=== PATIENT | male | born 1960 | race Hispanic/Latino ===

== ENCOUNTER 2018-10-30 04:54 | Emergency (ER) | payer BC ==
[2018-10-30 05:54] LABS: Basophils # (Auto) 0.1 K/mm3 (0.0-0.1); Basophils % (Auto) 0.6 % (0.0-1.8); Eosinophils # (Auto) 0.2 K/mm3 (0.0-0.4); Eosinophils % (Auto) 2.3 % (0.0-4.3); Hematocrit 44.6 % (35.5-45.6); Hemoglobin 15.1 gm/dl (11.8-15.2); Lymphocytes # (Auto) 1.7 K/mm3 (1.2-5.4); Lymphocytes % (Auto) 21.8 % (13.4-35.0); Mean Corpuscular HGB Conc 34 % (32-34); Mean Corpuscular Volume 98 fl (84-94); Monocytes # (Auto) 0.7 K/mm3 (0.0-0.8); Monocytes % (Auto) 8.5 % (0.0-7.3); Platelet Count 223 K/mm3 (140-440); Red Blood Count 4.53 M/mm3 (3.65-5.03); Red Cell Distribution Width 14.5 % (13.2-15.2)
[2018-10-30 06:12] LABS: BUN/Creatinine Ratio 9; Blood Urea Nitrogen 11 mg/dL (9-20); Calcium 9.7 mg/dL (8.4-10.2); Hemolysis Index 7
[2018-10-30] MEDS ORDERED: TYLENOL PO STA (06:56)
--- NOTE | 2018-10-30 06:57 | Emergency Department Report ---
ED Chest Pain HPI - General Chief Complaint: Chest Pain Stated Complaint: CHEST PAIN Time Seen by Provider: 10/30/18 06:45 Source: patient, RN notes reviewed Mode of arrival: Ambulatory Limitations: No Limitations - History of Present Illness Initial Comments: This is a 58-year-old gentleman who is not known to this provider previously, with a reported history of diabetes and hypertension. Patient works as a post hospital admissions officer, and is right-hand dominant. The patient presents to the emergency room with 2 complaints. His first complaint is nontraumatic left medial hypo-thenar numbness and pinky numbness, constant, painless, does not radiate anywhere for 2 days. The symptoms do not have exacerbating or relieving factors. There is no blurry vi elida, there is no extremity weakness, there is no proximal numbness, there is no loss of visual acuity, and there is no pain with chewing or swallowing food. At one point in time, he had a headache, which was not sudden or thunderclap in nature, not maximal in intensity, temporal, left-sided, now resolved. He has no midline neck pain. He has no bladder or bowel retention or incontinence. He has a secondary complaint of left-sided chest wall pain. This pain is present for 2 days. It is constant. It does not radiate to the back, arms or neck. There is no vomiting, diaphoresis or shortness of breath. There is no family history of cardiac disease. There is no posterior leg pain, there is no leg swelling, the patient reports no DVT or pulmonary embolus risk factors. He reports no cocaine use, and no tobacco consumption. MD Complaint: chest pain, other -: Gradual Onset: other Pain Location: other Pain Radiation: none Severity scale (0 -10): 1 Quality: aching Consistency: constant Improves With: rest Worsens With: palpation Aspirin use within the Past 7 Days: (1) Yes (for headache) - Related Data On Oral Contraceptives: No Previous Rx's Medication Instructions Recorded Last Taken Type Acetaminophen [Tylenol Arthritis] 650 mg PO Q6HR PRN #30 tablet.er 10/30/18 Unknown Rx Aspirin [Aspirin BABY CHEW TAB] 81 mg PO QDAY #30 tab.chew 10/30/18 Unknown Rx Allergies Allergy/AdvReac Type Severity Reaction Status Date / Time No Known Allergies Allergy Unverified 10/30/18 05:07 Heart Score - HEART Score History: Slightly suspicious EKG: Non-specific Age: 45-65 Risk factors: 1-2 risk factors Troponin: < normal limit HEART Score: 3 - Critical Actions Critical Actions: 0-3 pts:0.9-1.7%risk of adverse cardiac event.Candidate for discharge ED Review of Systems ROS: Stated complaint: CHEST PAIN Other details as noted in HPI Constitutional: denies: fever Eyes: denies: eye discharge, vision change ENT: denies: epistaxis Respiratory: denies: cough Cardiovascular: chest pain Gastrointestinal: denies: abdominal pain, nausea, vomiting Genitourinary: denies: dysuria Musculoskeletal: denies: back pain, arthralgia, myalgia Skin: denies: lesions Neurological: headache, numbness Psychiatric: denies: anxiety ED Past Medical Hx - Past Medical History Previous Medical History?: Yes Hx Hypertension: Yes Hx Diabetes: Yes - Surgical History Past Surgical History?: No - Social History Smoking Status: Never Smoker Substance Use Type: None - Medications Home Medications: Home Medications Medication Instructions Recorded Confirmed Last Taken Type Acetaminophen [Tylenol Arthritis] 650 mg PO Q6HR PRN #30 tablet.er 10/30/18 Unknown Rx Aspirin [Aspirin BABY CHEW TAB] 81 mg PO QDAY #30 tab.chew 10/30/18 Unknown Rx ED Physical Exam - General Limitations: No Limitations General appearance: alert, in no apparent distress - Head Head exam: Present: atraumatic, normocephalic - Eye Eye exam: Present: normal appearance, PERRL, EOMI, other (visual acuity intact to finger counting, color perception, reading at a close distance). Absent: nystagmus - ENT ENT exam: Present: normal exam, normal orophraynx, mucous membranes moist, normal external ear exam - Neck Neck exam: Present: normal inspection, full ROM. Absent: tenderness, m eningismus - Respiratory Respiratory exam: Present: normal lung sounds bilaterally, chest wall tenderness. Absent: respiratory distress, wheezes, rales, rhonchi, stridor - Cardiovascular Cardiovascular Exam: Present: regular rate, normal rhythm, normal heart sounds. Absent: bradycardia, tachycardia, irregular rhythm, systolic murmur, diastolic murmur, rubs, gallop - GI/Abdominal GI/Abdominal exam: Present: soft. Absent: distended, tenderness, guarding, rebound, pulsatile mass - Rectal Rectal exam: Present: deferred - Extremities Exam Extremities exam: Present: normal inspection, full ROM, other (2+ pulses noted in the bilateral upper, lower extremities. Compartments soft. No long bony tenderness. The pelvis is stable.). Absent: pedal edema, joint swelling, calf tenderness - Back Exam Back exam: Present: normal inspection, full ROM. Absent: tenderness, CVA tenderness (R), paraspinal tenderness, vertebral tenderness - Neurological Exam Neurological exam: Present: alert, oriented X3, CN II-XII intact, normal gait, other (Extraocular movements intact. Tongue midline. No facial droop. Facial sensation intact to light touch in the V1, V2, V3 distribution bilaterally. 5 and 5 strength in 4 extremities.. Sensation is intact to light touch in 4 extremities. Sensation intact to light touch, pinprick, proprioception in the bilateral upper, lower extremities). Absent: motor sensory deficit - Psychiatric Psychiatric exam: Present: normal affect, normal mood - Skin Skin exam: Present: warm, dry, intact, normal color. Absent: rash ED Course Vital Signs 10/30/18 05:06 Temperature 97.4 F L Pulse Rate 70 Respiratory 20 Rate Blood Pressure 150/94 O2 Sat by Pulse 93 Oximetry - Reevaluation(s) Reevaluation #1: 10/30/18 07:23 Differential diagnosis, including but not limited to: Peripheral neuropathy, diabetic neuropathy, costochondritis, intracranial lesion, pneumonia 10/30/18 07:23 Assessment and plan: 58-year-old gentleman with reproducible chest wall pain, present constantly for 48 hours, no pulmonary embolus or DVT risk factors, low risk by well's criteria, low risk by SAUL score, low risk by heart score, troponin negative 2, unlikely to be atypical manifestation of symptomatic coronary artery disease. We will treat the patient's pain supportively, and we will refer him to outpatient primary care or cardiology. We will treat his chest wall pain. X-ray the chest is pending. Patient has isolated left medial finger and hand numbness, over the hyperthenar eminence, and pinky. Objectively speaking, he has an NIH score of 0, and unremarkable neurologic examination, and no evidence of cellulitis, compartment syndrome, fracture, dislocation, or tendon dysfunction. He may follow-up with outpatient neurologist or primary care doctor for this presumed peripheral neuropathy. Reevaluation #2: 10/30/18 08:[address] scan of the brain negative for acute disease. Incidental subacute/chronic findings noted. Patient was started on aspirin. He will be referred to outpatient neurology, cardiology. SAUL score - Saul Score Age > 65: (0) No Aspirin use within the Past 7 Days: (1) Yes 3 or more CAD Risk Factors: (0) No Known CAD with more than 50% Stenosis: (0) No Elevated Cardiac Markers: (0) No ST Deviation Greater than 0.5mm: (0) No ED Medical Decision Making - Lab Data Result diagrams: 10/30/18 05:23 10/30/18 05:23 Vital Signs 10/30/18 05:06 Temperature 97.4 F L Pulse Rate 70 Respiratory 20 Rate Blood Pressure 150/94 O2 Sat by Pulse 93 Oximetry Lab Results 10/30/18 10/30/18 Range/Units 05:23 05:23 WBC 7.9 (4.5-11.0) K/mm3 RBC 4.53 (3.65-5.03) M/mm3 Hgb 15.1 (11.8-15.2) gm/dl Hct 44.6 (35.5-45.6) % MCV 98 H (84-94) fl MCH 33 H (28-32) pg MCHC 34 (32-34) % RDW 14.5 (13.2-15.2) % Plt Count 223 (140-440) K/mm3 Lymph % (Auto) 21.8 (13.4-35.0) % [place] % (Auto) 8.5 H (0.0-7.3) % Eos % (Auto) 2.3 (0.0-4.3) % Baso % (Auto) 0.6 (0.0-1.8) % Lymph # 1.7 (1.2-5.4) K/mm3 [place] # 0.7 (0.0-0.8) K/mm3 Eos # 0.2 (0.0-0.4) K/mm3 Baso # 0.1 (0.0-0.1) K/mm3 Seg Neutrophils % 66.8 (40.0-70.0) % Seg Neutrophils # 5.3 (1.8-7.7) K/mm3 Sodium 142 (137-145) mmol/L Potassium 4.4 (3.6-5.0) mmol/L Chloride 101.6 (98-107) mmol/L Carbon Dioxide 29 (22-30) mmol/L Anion Gap 16 mmol/L BUN 11 (9-20) mg/dL Creatinine 1.2 (0.8-1.5) mg/dL Estimated GFR > 60 ml/min BUN/Creatinine Ratio 9 % Glucose 135 H (75-100) mg/dL Calcium 9.7 (8.4-10.2) mg/dL Troponin T < 0.010 (0.00-0.029) ng/mL - EKG Data -: EKG Interpreted by Me EKG shows normal: sinus rhythm, axis, intervals, QRS complexes, ST-T waves - EKG Data When compared to previous EKG there are: previous EKG unavailable 10/30/18 07:26 Sinus, 74 bpm, normal axis, normal intervals, T-wave inversion in lead 3, not consistent with an ST elevation myocardial infarction, there is no prior for comparison. - Radiology Data Radiology results: pending, image reviewed interpreted by me: X-ray of the chest appears to be negative for acute disease. Critical care attestation.: If time is entered above; I have spent that time in minutes in the direct care of this critically ill patient, excluding procedure time. ED Disposition Clinical Impression: Chest wall pain, Numbness of left hand Disposition: - TO HOME OR SELFCARE Is pt being admited?: No Does the pt Need Aspirin: No Condition: Good Instructions: Chest Pain (ED) Additional Instructions: Continue current outpatient medications. Take the pain medication as needed/directed. Take aspirin on a daily basis. Follow-up with primary care doctor or taker off for chest wall pain within the next 5 days. Follow-up with the neurology specialist within the next 4-6 weeks for left hand numbness. Return to the ER right away with lethargy, irritability, Dr. vomiting, change in mental status, confusion, inability to speak, inability to breathe, it, worsening or different symptoms. Referrals: [facility] [Provider Group] - 3-[address] [facility] [Provider Group] - 3-5 Days [facility] [Provider Group] - 3-5 Days KELVIN MARTIN MD [Referring] - 3-5 Days ROSALINA TANNER MD [Staff Physician] - 3-5 Days
--- NOTE | 2018-10-30 07:28 | XRay Report ---
FINAL REPORT EXAM: XR CHEST ROUTINE 2V HISTORY: chest wall pain TECHNIQUE: PA and lateral chest radiographs PRIORS: None. FINDINGS: No mediastinal shift. Cardiac silhouette is not enlarged. No pneumothorax, effusion, or focal pulmon joey opacity. No acute skeletal finding. IMPRESSION: No focal pulmonary opacity.
--- NOTE | 2018-10-30 07:55 | Cat Scan Report ---
FINAL REPORT EXAM: CT HEAD/BRAIN WO CON HISTORY: headache, left finger tip numbness TECHNIQUE: Routine axial imaging was obtained of the brain without IV contrast. There are no previou s studies available for comparison. FINDINGS: The ventricular system is appropriate in size and is symmetric. There is no evidence of acute stroke or hemorrhage. There is a remote lacunar infarct in the deep white matter of the left temporal lobe. The basal cisterns appear normal. The mastoid air cells are well pneumatized. The visualized sinuses are clear. The calvarium appears intact IMPRESSION: No evidence of acute stroke or hemorrhage. Remote lacunar infarct in the deep white matter of the left temporal lobe.
[2018-10-30] MEDS ORDERED: TORADOL IM ONE (08:08)
[2018-10-30 08:34] VITALS: BP 163/101
== END 2018-10-30 08:33 | disposition home or self-care (01) ==
LOC: ED 04:54
DX: R07.89 Other chest pain (principal); R20.0 Anesthesia of skin; I10 Essential (primary) hypertension; E11.9 Type 2 diabetes mellitus without complications
CPT/HCPCS: 36415; 70450; 71046; 80048; 84484; 85025; 93005; 93010; 96372; 99285; J1885